=== PATIENT | female | born 2000 | race Caucasian/White ===

== ENCOUNTER 2023-01-09 04:12 | Emergency (ER) | payer OTHER, SELFPAY ==
[2023-01-09 04:23] VITALS: BP 129/79; PULSE 120; RESP 19; TEMP 36.9; O2SAT 95; BMI 31.2
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
[2023-01-09 05:00] VITALS: BP 117/92; PULSE 126; RESP 22; O2SAT 98
[2023-01-09] MEDS: tetanus-diphtheria tox (adult) 0.5 mL SDV IM (05:18)
[2023-01-09] MEDS: acetaminophen 500 mg Tablet 1000 MG PO (05:25)
[2023-01-09 05:30] VITALS: BP 116/57; PULSE 110; RESP 25; O2SAT 96
[2023-01-09 06:00] VITALS: BP 124/85; PULSE 119; RESP 20; O2SAT 97
[2023-01-09] MEDS: lidocaine 1% INJ 10 mL (per mL) 20 ML INJECTION (06:25)
[2023-01-09 06:26] VITALS: BP 104/74; PULSE 112; RESP 21; O2SAT 98
== END 2023-01-09 06:29 | disposition home or self-care (01) ==
PROVIDERS: Emergency Provider Emergency Medicine
DX: S01.91XA Laceration without foreign body of unspecified part of head, initial encounter (principal); R40.2412 Glasgow coma scale score 13-15, at arrival to emergency department; V86.65XA Passenger of 3- or 4- wheeled all-terrain vehicle (ATV) injured in nontraffic accident, initial encounter
CPT/HCPCS: 12001; 70450; 90471; 90714; 99284